=== PATIENT | male | born 1995 | race Hispanic/Latino ===

== ENCOUNTER 2019-01-24 17:01 | Emergency (ER) | payer OTHER ==
[~2019-01-24] VITALS: Ht 170.2 cm; Wt 87.4 kg
[2019-01-24] MEDS ORDERED: IBUPROFEN 600 MG TAB PO ONE (17:30)
[2019-01-24 18:02] LABS: INFLUENZA A AMPLIFICATION NEGATIVE (NEGATIVE); INFLUENZA B AMPLIFICATION NEGATIVE (NEGATIVE)
[2019-01-24 18:30] VITALS: BP 126/69
== END 2019-01-24 18:33 | disposition home or self-care (01) ==
LOC: M ED 17:01
DX: B34.9 Viral infection, unspecified (principal)